=== PATIENT | female | born 1985 | race Caucasian/White ===

== ENCOUNTER 2019-11-23 13:06 | Emergency (ER) | payer OTHER ==
--- NOTE | 2019-11-23 13:40 | ER Document Report ---
ED Medical Screen (RME) - General Chief Complaint: Pelvic Pain Stated Complaint: PELVIC PAIN Time Seen by Provider: 11/23/19 13:26 - HPI Notes: 11/23/19 13:38 34-year-old female presents to the ED for complaints of pelvic pain that started 3 days ago, denies any injury or trauma. Patient reports pain is only with walking or when she is palpating her pelvic suprapubic area. Denies any dysuria urgency or frequency. Denies any vaginal bleeding or vaginal discharge. Patient states that she took a laxative on Friday because she was a little constipated, she does not know if that has anything to do with it. Last menstrual cycle was November 09, 2019. He states she has been with the same sexual partner. Reports pain is sharp and stabbing. I have greeted and performed a rapid initial assessment of this patient. A comprehensive ED assessment and evaluation of the patient, analysis of test results and completion of the medical decision making process will be conducted by additional ED providers. PHYSICAL EXAMINATION: GENERAL: Well-appearing, well-nourished and in no acute distress. CV: s1, s2 regular LUNGS: No respiratory distress abd: pelvic pain on palpation, no cva tenderness appreciated. no abd pain appr eciated. Musculoskeletal: Normal range of motion NEUROLOGICAL: Normal speech, normal gait. SKIN: Warm, Dry, normal turgor, no rashes or lesions noted. - Related Data Allergies/Adverse Reactions: No Known Allergies Allergy (Verified 11/23/19 13:30) Physical Exam - Vital signs Vitals: Temp Pulse Resp BP Pulse Ox 98.7 F 91 20 148/88 H 99 11/23/19 13:22 11/23/19 13:22 11/23/19 13:22 11/23/19 13:22 11/23/19 13:22 Course - Vital Signs Vital signs: Temp Pulse Resp BP Pulse Ox 98.7 F 91 20 148/88 H 99 11/23/19 13:22 11/23/19 13:22 11/23/19 13:22 11/23/19 13:22 11/23/19 13:22
[2019-11-23 14:18] LABS: BACTERIA (WET MOUNT) 4+ BACTERIA SEEN; EPITHELIALS (WET MOUNT) 4+ EPITHELIALS SEEN; RBCS (WET MOUNT) NO RBCS SEEN; T.VAGINALIS (WET MOUNT) NO TRICHOMONAS SEEN; WBCS (WET MOUNT) 2+ WBCS SEEN; YEAST (WET MOUNT) NO YEAST SEEN
[2019-11-23 14:22] LABS: BASOPHILS % (AUTO) 0.8 % (0-2); EOSINOPHILS % (AUTO) 0.2 % (0-6); HEMATOCRIT 43.4 % (36.0-47.0); LYMPHOCYTES % (AUTO) 20.6 % (13-45); MEAN CORPUSCULAR HEMOGLOBIN 30.9 pg (27.0-33.4); MEAN CORPUSCULAR HGB CONC 34.5 g/dL (32.0-36.0); MEAN CORPUSCULAR VOLUME 90 fl (80-97); MONOCYTES % (AUTO) 5.7 % (3-13); PLATELET COUNT 372 10^3/uL (150-450); RED BLOOD COUNT 4.84 10^6/uL (3.72-5.28); RED CELL DISTRIBUTION WIDTH 13.3 % (11.5-14.0); SEGMENTED NEUTROPHILS % (AUTO) 72.7 % (42-78)
[2019-11-23 14:23] LABS: ABSOLUTE BASOPHILS # (AUTO) 0.1 10^3/uL (0.0-0.2); ABSOLUTE LYMPHOCYTES (AUTO) 3.3 10^3/uL (0.5-4.7); ABSOLUTE MONOCYTES (AUTO) 0.9 10^3/uL (0.1-1.4); ABSOLUTE NEUT (AUTO) 11.6 10^3/uL (1.7-8.2); TOTAL CELLS COUNTED % (AUTO) 100 %
[2019-11-23 14:26] LABS: APPEARANCE,URINE CLEAR; BILIRUBIN,URINE NEGATIVE (NEGATIVE); COLOR,URINE STRAW; GLUCOSE, URINE NEGATIVE (NEGATIVE); KETONES,URINE NEGATIVE (NEGATIVE); LEUKOCYTE ESTERASE,URINE NEGATIVE (NEGATIVE); NITRITE,URINE NEGATIVE (NEGATIVE); PROTEIN,URINE NEGATIVE (NEGATIVE); URINE SPECIFIC GRAVITY 1.005; UROBILINOGEN,URINE NEGATIVE mg/dL (<2.0)
[2019-11-23 14:37] LABS: ALBUMIN 4.2 g/dL (3.5-5.0); ALKALINE PHOSPHATASE 64 U/L (38-126); ANION GAP 7 (5-19); ASPARTATE AMINO TRANSFERASE 31 U/L (14-36); BILIRUBIN,TOTAL 0.2 mg/dL (0.2-1.3); BLOOD UREA NITROGEN 11 mg/dL (7-20); CALCIUM 9.4 mg/dL (8.4-10.2); CARBON DIOXIDE 25 mmol/L (22-30); CHLORIDE 105 mmol/L (98-107); GLUCOSE 80 mg/dL (75-110); POTASSIUM 4.5 mmol/L (3.6-5.0)
--- NOTE | 2019-11-23 15:08 | RADIOLOGY REPORT (SQ) ---
EXAM DESCRIPTION: U/S NON-OB PELVIS W/O DOP IMAGES COMPLETED DATE/TIME: 11/23/2019 2:53 pm REASON FOR STUDY: pelvic pain x 3 days COMPARISON: None. TECHNIQUE: Dynamic and static grayscale images acquired of the pelvis via transabdominal approach an d recorded on PACS. Additional selected color Doppler and spectral images recorded. LIMITATIONS: Large, transabdominal scan, pelvic bowel gas, empty urinary bladder FINDINGS: UTERUS: Grossly normal, 9 x 5 x 5 cm size ENDOMETRIAL STRIPE: No focal or generalized thickening. No masses. 9 to10 mm thickness CERVIX: No nabothian cysts. RIGHT OVARY AND DOPPLER: Normal size. No worrisome masses. Right ovary 3.4 x 2.1 x 2.1 cm. Normal c olor flow LEFT OVARY AND DOPPLER: Normal size. No worrisome masses. Left ovary 3.9 x 2.6 x 2.1 cm. Normal col or flow. FREE FLUID: None noted. OTHER: No other significant finding. Patient indicated a painful area right lower quadrant ultrasound over this area without and with Vals moeller demonstrates actively peristalsing bowel no right lower quadrant hernia. IMPRESSION: Limited negative study TECHNICAL DOCUMENTATION: JOB ID: [id number] 2010 [employer]- All Rights Reserved Rev-09/19 Reading location - IP/workstation name: [email or web address]
[2019-11-23 16:03] LABS: CHLAM PCR NOT DETECTED (NOT DETECT)
--- NOTE | 2019-11-23 16:37 | RADIOLOGY REPORT (SQ) ---
EXAM DESCRIPTION: CT ABD/PELVIS WITH IV ONLY IMAGES COMPLETED DATE/TIME: 11/23/2019 4:27 pm REASON FOR STUDY: pelvic pain COMPARISON: None. TECHNIQUE: CT scan of the abdomen and pelvis performed using helical scanning technique with dynamic intravenous contrast injection. No oral contrast. Images reviewed with lung, soft tissue, and bone windows. Reconstructed coronal and sagittal MPR images reviewed. Delayed images for evaluation of the urinary system also acquired. All images stored on PACS. All CT scanners at this facility use dose modulation, iterative reconstruction, and/or weight based d osing when appropriate to reduce radiation dose to as low as reasonably achievable (ALARA). [facility]: Dose Right [facility]: CareDose [facility]: Dose Right [facility]: Teradose 4D [facility]: TierPM CONTRAST TYPE AND DOSE: contrast/concentration: Isovue 350.00 mmol/ml; Total Contrast Delivered: 100 .0 ml; Total Saline Delivered: 72.0 ml RENAL FUNCTION: BUN 11 creatinine 0.65. RADIATION DOSE: CT Rad equipment meets quality standard of care and radiation dose reduction techniq ues were employed. CTDIvol: NaN - NaN mGy. DLP: 0 mGy-cm.. LIMITATIONS: None. FINDINGS: LOWER CHEST: No significant findings. No nodules or infiltrates. LIVER: Normal size. No masses. No dilated ducts. SPLEEN: Normal size. No focal lesions. PANCREAS: No masses. No significant calcifications. No adjacent inflammation or peripancreatic fluid collections. Pancreatic duct not dilated. GALLBLADDER: No identified stones by CT criteria. No inflammatory changes to suggest cholecystitis. ADRENAL GLANDS: No significant masses or asymmetry. RIGHT KIDNEY AND URETER: No solid masses. No significant calcifications. No hydronephrosis or hyd roureter. LEFT KIDNEY AND URETER: No solid masses. No significant calcifications. No hydronephrosis or hydr oureter. AORTA AND VESSELS: No aneurysm. No dissection. Renal arteries, SMA, celiac without stenosis. RETROPERITONEUM: No retroperitoneal adenopathy, hemorrhage or masses. BOWEL AND PERITONEAL CAVITY: No masses or inflammatory changes. No free fluid or peritoneal masses. APPENDIX: Normal. PELVIS: No mass. No free fluid. Normal bladder. ABDOMINAL WALL: No masses. No hernias. BONES: No significant or acute findings. OTHER: No other significant finding. IMPRESSION: NO SIGNIFICANT OR ACUTE FINDING IN THE ABDOMEN OR PELVIS ON CT SCAN WITH IV CONTRAST. TECHNICAL DOCUMENTATION: JOB ID: [id number] Quality ID # [id number]: Final reports with documentation of one or more dose reduction techniques (e.g., Au tomated exposure control, adjustment of the mA and/or kV according to patient size, use of iterative reconstruction technique) 2010 [employer]- All Rights Reserved Reading location - IP/workstation name: [email or web address]-
--- NOTE | 2019-11-23 17:12 | ER Document Report ---
ED General - General Chief Complaint: Pelvic Pain Stated Complaint: PELVIC PAIN Time Seen by Provider: 11/23/19 13:26 Mode of Arrival: Ambulatory Information source: Patient - HPI Notes: Patient presents with pelvic pain. She states she is had this for approximately 4 days. It is worse with walking and better with rest. No significant radiation of the pain. It is somewhat sharp. It is mild to moderate in intensity. It is intermittent and mainly only with movement. She denies any vaginal symptoms. No fevers. She has had a normal appetite. No nausea vomiting diarrhea. She has had no dysuria urgency or frequency. - Related Data Allergies/Adverse Reactions: No Known Allergies Allergy (Verified 11/23/19 13:30) Past Medical History - General Information source: Patient - Social History Smoking Status: Former Smoker Chew tobacco use (# tins/day): No Frequency of alcohol use: Rare Drug Abuse: None Family History: Reviewed & Not Pertinent Patient has homicidal ideation: No Review of Systems - Review of Systems Constitutional: denies: Chills, Fever Cardiovascular: denies: Chest pain, Palpitations Respiratory: denies: Cough, Short of breath -: Yes All other systems reviewed and negative Physical Exam - Vital signs Vitals: Temp Pulse Resp BP Pulse Ox 98.7 F 91 20 148/88 H 99 11/23/19 13:22 11/23/19 13:22 11/23/19 13:22 11/23/19 13:22 11/23/19 13:22 Interpretation: Hypertensive - General General appearance: Appears well, Alert - HEENT Head: Normocephalic, Atraumatic Eyes: Normal Pupils: PERRL - Respiratory Respiratory status: No respiratory distress Chest status: Nontender Breath sounds: Normal Chest palpation: Normal - Cardiovascular Rhythm: Regular Heart sounds: Normal auscultation Murmur: No - Abdominal Inspection: Normal Distension: No distension Bowel sounds: Normal Tenderness: Nontender Organomegaly: No organomegaly - Genitourinary External exam: Other - Pubic symphysis is tender to palpation - Back Back: Normal, Nontender - Extremities General upper extremity: Normal inspection, Nontender, Normal color, Normal ROM, Normal temperature General lower extremity: Normal inspection, Nontender, Normal color, Normal ROM, Normal temperature, Normal weight bearing. No: Maria Isabel's sign - Neurological Neuro grossly intact: Yes Cognition: Normal Orientation: AAOx4 [place] Coma Scale Eye Opening: Spontaneous [place] Coma Scale Verbal: Oriented [place] Coma Scale Motor: Obeys Commands [place] Coma Scale Total: 15 Speech: Normal Motor strength normal: LUE, RUE, LLE, RLE Sensory: Normal - Psychological Associated symptoms: Normal affect, Normal mood - Skin Skin Temperature: Warm Skin Moisture: Dry Skin Color: Normal Course - Re-evaluation Re-evalutation: 11/23/19 17:07 Patient presents with pain over the symphysis pubis without evidence of other significant abnormalities. She does have an elevated white blood cell count however all other labs are normal. Vital signs are stable. She appears in no distress. She has no significant abdominal pain. Abdominal CT and ultrasound of the abdomen and pelvic areas are also unremarkable. Clinical presentation seems most consistent with osteitis pubis. - Vital Signs Vital signs: Temp Pulse Resp BP Pulse Ox 98.7 F 91 20 148/88 H 99 11/23/19 13:22 11/23/19 13:22 11/23/19 13:22 11/23/19 13:22 11/23/19 13:22 - Laboratory Result Diagrams: 11/23/19 13:50 11/23/19 13:50 Laboratory results interpreted by me: 11/23/19 13:50 WBC 16.0 H Absolute Neuts (auto) 11.6 H - Diagnostic Test Radiology reviewed: Image reviewed, Reports reviewed Discharge - Discharge Clinical Impression: Osteitis pubis Condition: Stable Disposition: HOME, SELF-CARE Additional Instructions: Your symptoms seems most consistent with inflammation of your symphysis pubis joint. The best treatment for this is rest (limit walking, exercise, intercourse) and anti-inflammatory medicine like motrin. Please call your PEDIATRICS TEACHER as soon as possible to arrange follow up. Prescriptions: Prednisone [Deltasone 20 mg Tablet] 3 tab PO DAILY 5 Days tablet Ibuprofen [Motrin Ib] 600 mg PO Q8 3 Days #27 capsule Forms: Return to Work Referrals: PARISA SMITH MD [ACTIVE STAFF] - Follow up in 3-5 days
[2019-11-23 17:51] VITALS: BP 136/74
== END 2019-11-23 17:25 | disposition home or self-care (01) ==
LOC: ER 13:06
DX: M86.8X8 Other osteomyelitis, other site (principal); R10.2 Pelvic and perineal pain
CPT/HCPCS: 36415; 74177; 76856; 80053; 81001; 81025; 85025; 87210; 87491; 87591; 99284